=== PATIENT | male | born 1950 | race Caucasian/White ===

== ENCOUNTER 2020-06-23 09:56 | Day surgery (SDC) | payer MEDICARE, OTHER ==
[~2020-06-23] VITALS: Ht 170.2 cm; Wt 73.6 kg
[2020-06-23 10:24] VITALS: BP 120/82
[2020-06-23] MEDS ORDERED: ATOR20TA86 PO (10:24)
[2020-06-23] MEDS ORDERED: ESCI20TA10 PO (10:24)
[2020-06-23] MEDS ORDERED: ASPI-1026 PO (10:24)
[2020-06-23] MEDS ORDERED: PROP20SO PO (10:24)
[2020-06-23] MEDS ORDERED: CHLORHEXIDINE 15 ML UDC PO ONE (10:30)
[2020-06-23] MEDS ORDERED: LACTATED RINGERS 1,000 ML IV SCH (10:30)
[2020-06-23] MEDS ORDERED: FENTANYL PF 100 MCG/2ML ONE (10:51)
[2020-06-23] MEDS ORDERED: BUPIVACAINE/PF 0.25% ONE (10:57)
[2020-06-23] MEDS ORDERED: ROCURONIUM 10 MG/ML,10ML ONE (11:47)
[2020-06-23] MEDS ORDERED: SUCCINYLCHOLINE 20 MG/ML, 10ML ONE (11:47)
[2020-06-23] MEDS ORDERED: PROPOFOL 10 MG/ML, 20ML ONE (12:30)
[2020-06-23] MEDS ORDERED: DEXAMETHASONE 4 MG/ML, 1ML ONE (12:30)
[2020-06-23] MEDS ORDERED: CEFAZOLIN 1,000 MG ONE (12:30)
[2020-06-23] MEDS ORDERED: ONDANSETRON 2MG/ML, 2ML ONE (12:30)
[2020-06-23] MEDS ORDERED: LORazepam 2 MG/ML, 1ML IVPush PRN (13:00)
[2020-06-23] MEDS ORDERED: FENTANYL PF 100 MCG/2ML IV PRN (13:00)
[2020-06-23] MEDS ORDERED: METHOCARBAMOL 1,000 MG in DEXTROSE 5% 100 ML IV PRN (13:00)
[2020-06-23] MEDS ORDERED: PROMETHAZINE 25 MG SUPP PR PRN (13:00)
[2020-06-23] MEDS ORDERED: HYDROmorphone 1 MG/ML, 1ML INJ IVPush PRN (13:00)
[2020-06-23] MEDS ORDERED: OXYcodone 5 MG/5 ML ORAL.SOL UDC PO PRN (13:00)
[2020-06-23] MEDS ORDERED: ACETAMINOPHEN 325 MG TABLET PO PRN (13:00)
[2020-06-23] MEDS ORDERED: ONDANSETRON 2MG/ML, 2ML IVPush PRN (13:00)
[2020-06-23] MEDS ORDERED: PROMETHAZINE 25 MG/ML, 1ML IVPush PRN (13:00)
== END 2020-06-23 14:20 | disposition home or self-care (01) ==
LOC: OUT 09:56 → UNDOADMOB 12:54 → ORIP 12:54
PROVIDERS: ATTEND Orthopaedic Surgery
DX: S46.211A Strain of muscle, fascia and tendon of other parts of biceps, right arm, initial encounter (principal); M79.631 Pain in right forearm; X58.XXXA Exposure to other specified factors, initial encounter; Y93.89 Activity, other specified; Y92.89 Other specified places as the place of occurrence of the external cause; Y99.8 Other external cause status; Z88.1 Allergy status to other antibiotic agents; Z79.899 Other long term (current) drug therapy; Z79.82 Long term (current) use of aspirin; Z87.891 Personal history of nicotine dependence; Z20.822 Contact with and (suspected) exposure to COVID-19
CPT/HCPCS: 24342; 64415; 73070; 93005; J0330; J0690; J1100; J2405; J2704; J3010; J7120; U0003; 76000